=== PATIENT | male | born 1975 | race Asian ===

== ENCOUNTER 2020-08-22 03:16 | Emergency (ER) | payer BC ==
[~2020-08-22] VITALS: Ht 167.6 cm; Wt 81.6 kg
[2020-08-22 03:16] VITALS: BP_SYST 144
--- NOTE | 2020-08-22 03:26 | NUR ---
Placed in room 4 . Placed on quality assurance monitor body, blood pressure machine and pulse oximeter. To gown for exam. Side rails up. Report given to august.
--- NOTE | 2020-08-22 03:40 | NUR ---
Urine specimen collected and analyzed in lab. Results pending and will be given to JAMIE HUDSON.
--- NOTE | 2020-08-22 03:45 | NUR ---
# 20 gauge angiocath placed to left forearm. Use of asceptic technique. Opsite placed over site. Blood return noted. Blood for lab drawn from site. Flushed with 10 cc of normal saline. No evidence of infiltration noted. Patient tolerated well. Medicated per MD orders. IVF infusing with no s/s of infiltration at this time. Will cont to monitor. Iv site patent and intact.
[2020-08-22] MEDS ORDERED: NACL 0.9% 1,000 ML IV ONE (04:00)
[2020-08-22 04:42] LABS: BASOPHILS # (AUTO) 0.1 K/uL (0.0-0.2); BASOPHILS % (AUTO) 0.8 % (0.0-2.0); EOSINOPHILS # (AUTO) 0.1 K/uL (0.0-0.4); HEMATOCRIT 46.4 % (36-54); LYMPHOCYTES # (AUTO) 2.1 K/uL (1.0-5.5); LYMPHOCYTES % (AUTO) 31.7 % (20.5-51.5); MEAN CORPUSCULAR HEMOGLOBIN 31 pg (27-31); MEAN CORPUSCULAR HGB CONC 34 % (32-36); MEAN CORPUSCULAR VOLUME 89 fL (79.0-98.0); MONOCYTES # (AUTO) 0.5 K/uL (0.0-1.0); MONOCYTES % (AUTO) 7.4 % (1.7-9.3); NEUTROPHILS # (AUTO) 3.9 K/uL (1.8-7.7); NEUTROPHILS % (AUTO) 58.1 % (40.0-70.0); PLATELET COUNT (AUTO) 185 K/uL (130-430); RED BLOOD CELL COUNT(AUTO) 5.22 MIL/uL (4.2-6.2); RED CELL DISTRIBUTION WIDTH 12.6 % (9.0-15.0); WHITE BLOOD COUNT (AUTO) 6.7 K/uL (4.8-10.8)
[2020-08-22 04:46] LABS: ANION GAP 13 (5-15); CALCIUM 8.5 mg/dL (8.4-11.0); CHLORIDE 105 mmol/L (98-107); CREATININE 1.03 mg/dL (0.55-1.30); GLUCOSE 107 mg/dL (70-99); POTASSIUM 3.6 mmol/L (3.5-5.1); SODIUM SERUM 142 mmol/L (136-145); UREA NITROGEN, BLOOD 12 mg/dL (8-21)
[2020-08-22 04:50] LABS: ALANINE AMINOTRANSFERASE 50 U/L (12-78); ASPARTATE AMINOTRANSFERASE 17 U/L (10-37); TOTAL BILIRUBIN 0.7 mg/dL (0.0-1.0)
[2020-08-22 04:52] LABS: GFR AFRICAN AMERICAN 101 mL/min (>90)
[2020-08-22 05:09] VITALS: BP_SYST 130
--- NOTE | 2020-08-22 05:09 | NUR ---
Patient resting quietly. No acute distress noted. Vital signs within normal range. Awaiting MD dispo.
--- NOTE | 2020-08-22 05:13 | NUR ---
Patient given written and verbal discharge instructions and verbalizes understanding. ER MD discussed with patient the results and treatment provided. Patient in stable condition. Patient educated on pain management and to follow up with PMD. Pain Scale 0. Opportunity for questions provided and answered. Medication side effect fact sheet provided.
--- NOTE | 2020-08-22 05:13 | NUR ---
Medicated per MD orders. Will cont to monitor will observe for any adverse reaction.
[2020-08-22] MEDS ORDERED: LOPERAMIDE HCL 2 MG CAPSULE PO ONE (05:15)
== END 2020-08-22 05:13 | disposition home or self-care (01) ==
LOC: SED 03:16
DX: R19.7 Diarrhea, unspecified (principal); R00.2 Palpitations
CPT/HCPCS: 36415; 80053; 84484; 85025; 96360; 99283; J7030